=== PATIENT | male | born 1995 | race Caucasian/White ===

== ENCOUNTER 2017-01-17 08:43 | Emergency (ER) | payer MEDICAID ==
--- NOTE | 2017-01-17 09:26 | XRAY Preliminary Report ---
Exam: XR Shoulder 3 View RT IMPRESSION: A.c. joint separation [facility] SITE ID: [id number]
--- NOTE | 2017-01-17 09:28 | XRAY Report ---
EXAM: RIGHT SHOULDER RADIOGRAPHY EXAM DATE: 01/17/2017 09:11 AM. CLINICAL HISTORY: Shoulder injury. COMPARISON: None. TECHNIQUE: 3 views. FINDINGS: Bones: Normal. No fracture or bone lesion. Joints: A.c. joint separation or a.c. joint 1.1 cm. Clavicle craniad to the acromion on by 8-12 mm Th e glenohumeral joint intact Soft tissues: The visualized hemithorax is unremarkable. No soft tissue swelling. IMPRESSION: A.c. joint separation [facility] Referring Provider Line: [phone] SITE ID: [id number]
--- NOTE | 2017-01-17 09:45 | ED Physician Documentation ---
PD HPI UPPER EXT INJURY - Stated complaint Stated Complaint: R SHOULDER INJURY - Chief complaint Chief Complaint: Ext Problem - History obtained from History obtained from: Patient Review of Systems Skin: denies: Abrasion (s), Laceration (s) Musculoskeletal: reports: Other (right shoulder pain) Neurologic: denies: Focal weakness, Numbness PD PAST MEDICAL HISTORY - Past Medical History Past Medical History: No - Past Surgical History Past Surgical History: No - Present Medications Home Medications: Ambulatory Orders Medication Instructions Recorded Confirmed Hydrocodone/Acetaminophen [[place] 1 each PO Q6H PRN #20 tablet 01/17/17 5-325 Tablet] - Allergies Allergies/Adverse Reactions: Allergies Allergy/AdvReac Type Severity Reaction Status Date / Time No Known Drug Allergies Allergy Verified 01/17/17 08:49 - Social History Does the pt smoke?: Yes Smoking Status: Current some day smoker Does the pt drink ETOH?: Yes Does the pt have substance abuse?: No - Immunizations Immunizations are current?: Yes PD ED PE NORMAL - Vitals Vital signs reviewed: Yes - General General: Alert and oriented X 3, No acute distress, Well developed/nourished - Neck Neck: No bony TTP - Cardiac Cardiac: RRR, No murmur - Respiratory Respiratory: Clear bilaterally - Derm Derm: Normal color, Warm and dry - Extremities Extremities: Other (right shoulder tender at AC joint area. No obvious laxity on passive ROM. Hurts for abduction but can initiate it against resistance. Did not attempt him overhead reaching. ) - Neuro Neuro: Alert and oriented X 3, No motor deficit, Normal speech Results - Vitals Vitals: Vital Signs - 24 hr 01/17/17 10:30 Temperature 36.5 C Heart Rate 49 L Blood Pressure 118/59 L O2 Saturation 100 Oxygen O2 Source Room air - Rads (name of study) shoulder Radiology: Prelim report reviewed, EMP read contemporaneously (AC widening and slight offset c/w separation.) PD MEDICAL DECISION MAKING - ED course Complexity details: reviewed results, considered differential, d/w patient Departure - Departure Disposition: 01 Home, Self Care Clinical Impression: Accidental fall Qualifiers: Encounter type: initial encounter Qualified Code(s): W19.XXXA - Unspecified fall, initial encounter Acromioclavicular (AC) joint injury Qualifiers: Encounter type: initial encounter Laterality: right Qualified Code(s): S49.91XA - Unspecified injury of right shoulder and upper arm, initial encounter Condition: Stable Record reviewed to determine appropriate education?: Yes Instructions: ED Sprain AC Joint, ED Sprain Shoulder Follow-Up: Curtis Chun MD [Provider Admit Priv/Credential] - Prescriptions: Hydrocodone/Acetaminophen [[place] 5-325 Tablet] 1 each PO Q6H PRN #20 tablet PRN Reason: Pain Comments: sling for comfort of shoulder and to support it. Gentle range of motion several times daily. No overhead reaching, push/pull, nor heavy lifting with right arm for likely 3-4 weeks until fully healed. It looks like a separation of the AC joint, and could also have some rotator cuff strain. Ibuprofen 3 times daily. Add pain meds if needed. Follow up Ortho in about 1-2 weeks. Discharge Date/Time: 01/17/17 10:25
[2017-01-17] MEDS ORDERED: HYDROcod/ACETAM 5/325 MG TABLET ONE (10:10)
[2017-01-17] MEDS: HYDROcod/ACETAM 5/325 MG TABLET PO STA (10:14)
[2017-01-17 10:31] VITALS: BP 118/59
== END 2017-01-17 10:25 | disposition home or self-care (01) ==
LOC: ED 08:43
DX: S43.101A Unspecified dislocation of right acromioclavicular joint, initial encounter (principal); W19.XXXA Unspecified fall, initial encounter; F17.200 Nicotine dependence, unspecified, uncomplicated
CPT/HCPCS: 99283

== ENCOUNTER 2019-12-08 16:01 | Emergency (ER) | payer MEDICAID ==
[2019-12-08] MEDS ORDERED: TETANUS/DIPHTHERIA/PERTUSSIS 0.5 ML SYRINGE IM ONE (18:02)
[2019-12-08] MEDS ORDERED: LIDOCAINE 2%-EPI 1:100000 20 ML MDV SUBQ STA (18:05)
--- NOTE | 2019-12-08 18:11 | ED Physician Documentation ---
PD HPI SKIN - Stated complaint Stated Complaint: CHIN LAC - Chief complaint Chief Complaint: Laceration - History obtained from History obtained from: Patient (Patient states that he was skiing up on [facility] this afternoon going down some moguls when he lost control and crashed subsequently sustained a chin laceration he Steri-Stripped butterfly Band-Aids were applied by the medics and he came only back down here to be seen as he did not have any idea on him to stop in [place] or [facility]. The patient states his tetanus shot is out of date. He denies any loss of consciousness..) Review of Systems Constitutional: reports: Reviewed and negative Cardiac: reports: Reviewed and negative Respiratory: reports: Reviewed and negative Skin: reports: Laceration (s) Musculoskeletal: denies: Neck pain, Extremity pain PD PAST MEDICAL HISTORY - Past Medical History Past Medical History: No - Past Surgical History Past Surgical History: No - Present Medications Home Medications: Ambulatory Orders Medication Instructions Recorded Confirmed Hydrocodone/Acetaminophen [[place] 1 each PO Q6H PRN #20 tablet 01/17/17 5-325 Tablet] - Allergies Allergies/Adverse Reactions: Allergies Allergy/AdvReac Type Severity Reaction Status Date / Time No Known Drug Allergies Allergy Verified 12/08/19 16:14 - Social History Does the pt smoke?: Yes Smoking Status: Current every day smoker Does the pt drink ETOH?: Yes Does the pt have substance abuse?: No - Immunizations Immunizations are current?: Yes - POLST Patient has POLST: No PD ED PE NORMAL - General General: Alert and oriented X 3, No acute distress, Well developed/nourished - HEENT HEENT: Atraumatic, PERRL - Derm Derm: Normal color, Warm and dry, No rash Results - Vitals Vitals: Vital Signs - 24 hr 12/08/19 16:14 Temperature 36.5 C Heart Rate 56 L Respiratory 14 Rate Blood Pressure 114/69 O2 Saturation 100 Oxygen O2 Source Room air Procedures - Laceration (location) Face Length in cm: 3 Wound type: Linear, Into subcut fat, Clean. No: Contaminated Neurovascular status: Sensory intact, Vascular intact Anesthesia: Lidocaine 2% with epi Wound Preparation: Betadine, Irrigated copiously NS Skin layer closure: Prolene, Interrupted, Sutures - enter # (3 mattress) Other: Patient tolerated well, No complications, Dressing applied, Tetanus booster given PD MEDICAL DECISION MAKING - ED course Complexity details: reviewed results, re-evaluated patient, d/w patient Departure - Departure Disposition: 01 Home, Self Care Clinical Impression: Laceration Condition: Good Instructions: ED Laceration All Comments: Sutures need to come out in 5 days by your primary care provider. Keep the original Band-Aid on for 24 hours then after that keep the wound clean dry and covered he can apply a small amount of antibiotic ointment each day with a bandage change.Your chin will be numb for a couple of hours, once the numbness wears off he can use ibuprofen or Tylenol for pain control. If you notice any signs of infection, increased swelling redness tenderness around the wound after 2 days he can follow-up with your primary care provider or return to the ER for further evaluation.
[2019-12-08 18:49] VITALS: BP 118/68
== END 2019-12-08 19:01 | disposition home or self-care (01) ==
LOC: ED 16:01
DX: S01.81XA Laceration without foreign body of other part of head, initial encounter (principal); V00.321A Fall from snow-skis, initial encounter; Y93.23 Activity, snow (alpine) (downhill) skiing, snowboarding, sledding, tobogganing and snow tubing; Y92.828 Other wilderness area as the place of occurrence of the external cause; Z23 Encounter for immunization; F17.200 Nicotine dependence, unspecified, uncomplicated
CPT/HCPCS: 12013; 90471; 99282